=== PATIENT | male | born 2000 | race Hispanic/Latino ===

== ENCOUNTER 2024-09-12 17:29 | Emergency (ER) | payer OTHER ==
[~2024-09-12] VITALS: Ht 180.3 cm; Wt 89.0 kg
[2024-09-12] MEDS: ACETAMINOPHEN 500 MG TAB PO ONE (18:01)
[2024-09-12] MEDS: AMOXICILLIN 500 MG CAP PO ONE (19:47)
[2024-09-12 20:06] VITALS: BP 132/70; TEMP 98.6; O2SAT 98
[2024-09-12] MEDS ORDERED: AMOX500C PO (20:30)
== END 2024-09-12 21:01 | disposition home or self-care (01) ==
LOC: M ED 17:29
DX: J02.0 Streptococcal pharyngitis (principal); B34.1 Enterovirus infection, unspecified; J45.909 Unspecified asthma, uncomplicated; Z88.8 Allergy status to other drugs, medicaments and biological substances; Z79.2 Long term (current) use of antibiotics

== ENCOUNTER 2025-02-11 17:59 | Inpatient (IN) | payer OTHER ==
[~2025-02-11] VITALS: Ht 180.3 cm; Wt 87.2 kg
[~2025-02-11 17:59] MED LIST: AMOX500C PO
[2025-02-11] MEDS: IBUPROFEN 600 MG TAB PO ONE (20:22)
[2025-02-11] MEDS: NS (Normal Saline) 0.9% 1,000 ML IV ONE ×2 (20:23→23:45)
[2025-02-11] MEDS: CEFEPIME HCL 2 GM in DEXTROSE 5% (D5W) ADV/MINI-BAG 50 ML IV ONE (20:23)
[2025-02-11 20:37] LABS: BASO # 0.1 10^3/uL (0.0-0.2); BASO % 0.7 % (0.0-1.0); EOS # 0.0 10^3/uL (0.0-0.5); EOS % 0.1 % (0.0-3.0); LYMPH # 0.7 10^3/uL (1.5-5.0); LYMPH % 6.1 % (24.0-44.0); MONO # 0.8 10^3/uL (0.0-0.8); MONO % 6.9 % (2.0-8.0); NEUTROPHILS # 10.4 10^3/uL (1.5-8.5); NEUTROPHILS % 85.6 % (36.0-66.0); PLATELET COUNT, AUTOMATED 242 10^3/uL (150-450)
[2025-02-11 20:40] LABS: KETONE, URINE AUTO RFX NEGATIVE (NEGATIVE); LEUKOCYTE ESTERASE UR AUTO RFX NEGATIVE (NEGATIVE); MUCUS, URINE RFX SMALL (NEGATIVE); NITRITE, URINE AUTO RFX NEGATIVE (NEGATIVE); RBC, URINE AUTO RFX 0 /HPF (0-3); SQUAM EPITHELIAL CELL UR AURFX 0 /HPF (0-6); WBC, URINE AUTO RFX 0 /HPF (0-3)
[2025-02-11 21:03] LABS: ALT/SGPT 19 U/L (7.0-40); AST/SGOT 23 U/L (<34); CALCIUM LEVEL 9.2 MG/DL (8.5-10.1); CARBON DIOXIDE LEVEL 22 MMOL/L (20-31); CHLORIDE LEVEL 102 MMOL/L (98-107); CREATININE FOR GFR 1.11 MG/DL (0.70-1.30); GLOMERULAR FILTRATION RATE > 90.0 (>60); POTASSIUM SERUM 3.7 MMOL/L (3.5-5.1); SODIUM LEVEL 135 MMOL/L (136-145)
[2025-02-11 21:11] LABS: MONO SCRN NEGATIVE (NEGATIVE)
[2025-02-11] MEDS ORDERED: ISOVUE-370 76% 100 ML VIAL As Ordered ONE (21:22)
[2025-02-11] MEDS: ACETAMINOPHEN 325 MG TAB PO ONE (22:09)
[2025-02-11] MEDS: AMPICILLIN SOD/SULBACTAM SOD 3 GM in DEXTROSE 5% (D5W) MINI-BAG PLU 100 ML IV ONE (23:45)
[2025-02-11] MEDS ORDERED: LIDOCAINE VISCOUS 2% SOLN 15 ML UDC MT PRN (23:50)
[2025-02-12 01:50] VITALS: BP 145/77; TEMP 98; O2SAT 98
[2025-02-12 04:00] VITALS: BP 108/57; TEMP 96.5; O2SAT 99
[2025-02-12] MEDS ORDERED: HOME MED LIST COMPLETE! XX SCH (04:10)
[2025-02-12] MEDS: ACETAMINOPHEN 500 MG TAB PO SCH (06:07)
[2025-02-12] MEDS: AMPICILLIN SOD/SULBACTAM SOD 3 GM in DEXTROSE 5% (D5W) MINI-BAG PLU 100 ML IV SCH (06:10)
[2025-02-12 12:00] VITALS: BP 134/67; TEMP 98.2; O2SAT 98
[2025-02-12 19:44] VITALS: BP 126/65; TEMP 98.2; O2SAT 97
[2025-02-12] MEDS: IBUPROFEN 600 MG TAB PO PRN (19:46)
[2025-02-13 03:35] VITALS: BP 120/66; TEMP 97.8; O2SAT 97
[2025-02-13 09:00] LABS: PLATELET COUNT, AUTOMATED 174 10^3/uL (150-450)
[2025-02-13 12:00] VITALS: BP 148/68; TEMP 99.3; O2SAT 98
[2025-02-13] MEDS ORDERED: AMOX875T2 PO (12:27)
[2025-02-13] MEDS ORDERED: IBUP600T42 PO (12:27)
== END 2025-02-13 14:00 | disposition home or self-care (01) | DRG 153 ==
LOC: M ED 17:59 → M ED INP 18:00 → M MS4PR 02-12 01:46 → OBSVTOIN 02-12 09:45 → UNDODISOB 02-13 14:00
PROVIDERS: ADMIT Student in an Organized Health Care Education/Training Program; ATTEND Student in an Organized Health Care Education/Training Program
DX: J36 Peritonsillar abscess (principal); R59.0 Localized enlarged lymph nodes; Z88.8 Allergy status to other drugs, medicaments and biological substances